=== PATIENT | male | born 1990 | race Caucasian/White ===

== ENCOUNTER 2017-03-27 07:39 | Emergency (ER) | payer SELFPAY ==
[~2017-03-27] VITALS: Ht 172.7 cm; Wt 75.0 kg
[~2017-03-27 07:39] MED LIST: LEVAQUIN 750MG750 M1 PO; NO HOME MEDICATIONS; NORCO 325 MG-51 TAB PO; PERCOCET 325 MG1 TA2 PO; PERCOCET 325 MG1 TAB PO; ZOFRAN 4MG T4 MG/TAB PO
[2017-03-27 07:45] VITALS: BP 164/82; TEMP 98.1
[2017-03-27] MEDS ORDERED: AMOXICILLIN875 MG PO (08:31)
[2017-03-27 09:12] VITALS: PULSE 98
== END 2017-03-27 09:22 | disposition home or self-care (01) ==
LOC: COL.ER 07:39
DX: S00.512A Abrasion of oral cavity, initial encounter (principal); J02.9 Acute pharyngitis, unspecified; K04.7 Periapical abscess without sinus; F17.210 Nicotine dependence, cigarettes, uncomplicated

== ENCOUNTER 2017-12-27 11:25 | Emergency (ER) | payer SELFPAY ==
[~2017-12-27] VITALS: Ht 172.7 cm; Wt 80.5 kg
[~2017-12-27 11:25] MED LIST changes: +AMOXICILLIN875 MG PO
[2017-12-27 11:32] VITALS: TEMP 98.7
[2017-12-27] MEDS ORDERED: NORCO 325 MG-51 TAB PO (12:31)
[2017-12-27] MEDS ORDERED: PEN-VEE K500 MG PO ×3 (12:31→12:34)
[2017-12-27 12:49] VITALS: BP 156/91; PULSE 65
== END 2017-12-27 12:51 | disposition home or self-care (01) ==
LOC: COL.ER 11:25
DX: K08.89 Other specified disorders of teeth and supporting structures (principal); F17.210 Nicotine dependence, cigarettes, uncomplicated; F12.90 Cannabis use, unspecified, uncomplicated

== ENCOUNTER 2018-01-16 18:31 | Emergency (ER) | payer SELFPAY ==
[~2018-01-16] VITALS: Ht 172.7 cm; Wt 80.5 kg
[~2018-01-16 18:31] MED LIST changes: +PEN-VEE K500 MG PO
[2018-01-16 18:35] VITALS: BP 142/95; PULSE 74; TEMP 98.6
[2018-01-16] MEDS ORDERED: AMOXICILLIN 50500 MG PO (18:47)
[2018-01-16] MEDS ORDERED: NORCO 325 MG-51 TAB PO (18:47)
== END 2018-01-16 18:58 | disposition home or self-care (01) ==
LOC: COL.ER 18:31
DX: K02.9 Dental caries, unspecified (principal); F17.210 Nicotine dependence, cigarettes, uncomplicated

== ENCOUNTER 2018-01-19 18:25 | Emergency (ER) | payer SELFPAY ==
[~2018-01-19] VITALS: Ht 172.7 cm; Wt 80.5 kg
[~2018-01-19 18:25] MED LIST changes: +AMOXICILLIN 50500 MG PO
[2018-01-19 18:28] VITALS: BP 162/94; TEMP 98.3
[2018-01-19] MEDS ORDERED: NORCO 325 MG-51 TAB PO (19:04)
[2018-01-19] MEDS ORDERED: AMOXICILLIN 8751 TAB PO (19:04)
[2018-01-19 19:16] VITALS: PULSE 84
== END 2018-01-19 19:13 | disposition home or self-care (01) ==
LOC: COL.ER 18:25
DX: K08.89 Other specified disorders of teeth and supporting structures (principal); F17.210 Nicotine dependence, cigarettes, uncomplicated; Z79.899 Other long term (current) drug therapy

== ENCOUNTER 2018-06-13 16:22 | Emergency (ER) | payer SELFPAY ==
[~2018-06-13] VITALS: Ht 172.7 cm; Wt 71.8 kg
[~2018-06-13 16:22] MED LIST changes: +AMOXICILLIN 8751 TAB PO
[2018-06-13 16:44] VITALS: BP 184/99; TEMP 99.1
[2018-06-13] MEDS ORDERED: PEN-VEE K500 MG PO ×2 (16:56→17:10)
[2018-06-13] MEDS ORDERED: NORCO 325 MG-51 TAB PO ×2 (16:56→17:10)
[2018-06-13] MEDS ORDERED: IBU400 MG PO (16:57)
[2018-06-13] MEDS ORDERED: TYLENOL 500MG500 MG PO (16:58)
[2018-06-13 17:17] VITALS: PULSE 71
== END 2018-06-13 17:16 | disposition home or self-care (01) ==
LOC: COL.ER 16:22
DX: K08.89 Other specified disorders of teeth and supporting structures (principal); F17.210 Nicotine dependence, cigarettes, uncomplicated

== ENCOUNTER 2018-07-26 10:04 | Emergency (ER) | payer SELFPAY ==
[~2018-07-26] VITALS: Ht 325.1 cm; Wt 75.0 kg
[~2018-07-26 10:04] MED LIST changes: +IBU400 MG PO; +TYLENOL 500MG500 MG PO
[2018-07-26 11:24] VITALS: BP 148/73; PULSE 87; TEMP 98.4
== END 2018-07-26 11:24 | disposition home or self-care (01) ==
LOC: COL.ER 10:04
DX: K02.9 Dental caries, unspecified (principal); F17.210 Nicotine dependence, cigarettes, uncomplicated; Z79.1 Long term (current) use of non-steroidal anti-inflammatories (NSAID)

== ENCOUNTER 2018-10-01 13:03 | Emergency (ER) | payer SELFPAY ==
[~2018-10-01] VITALS: Ht 172.7 cm; Wt 73.2 kg
[2018-10-01 13:09] VITALS: BP 165/99; TEMP 98.8
[2018-10-01] MEDS ORDERED: MAGIC MOUTH PO (13:26)
[2018-10-01] MEDS ORDERED: AMOXICILLIN 50500 MG PO (13:26)
[2018-10-01 13:40] VITALS: PULSE 83
== END 2018-10-01 13:41 | disposition home or self-care (01) ==
LOC: COL.ER 13:03
DX: K02.9 Dental caries, unspecified (principal); K14.0 Glossitis; F17.210 Nicotine dependence, cigarettes, uncomplicated

== ENCOUNTER 2018-10-22 17:21 | Emergency (ER) | payer SELFPAY ==
[~2018-10-22] VITALS: Ht 172.7 cm; Wt 70.5 kg
[~2018-10-22 17:21] MED LIST changes: +MAGIC MOUTH PO
[2018-10-22 17:31] VITALS: BP 134/80; TEMP 97
[2018-10-22 19:35] VITALS: PULSE 85
== END 2018-10-22 19:36 | disposition home or self-care (01) ==
LOC: COL.ER 17:21
DX: S20.211A Contusion of right front wall of thorax, initial encounter (principal); F17.210 Nicotine dependence, cigarettes, uncomplicated; F12.90 Cannabis use, unspecified, uncomplicated; W01.198A Fall on same level from slipping, tripping and stumbling with subsequent striking against other object, initial encounter
CPT/HCPCS: J1885